=== PATIENT | female | born 1970 | race Caucasian/White ===

== ENCOUNTER 2017-06-10 19:17 | Emergency (ER) | payer MEDICAID ==
[2017-06-10] MEDS: predniSONE 20 MG TAB PO (21:50)
== END 2017-06-10 22:04 | disposition home or self-care (01) ==
LOC: FTE 19:17
DX: R21 Rash and other nonspecific skin eruption (principal)
CPT/HCPCS: 99283; J7512

== ENCOUNTER 2018-05-15 10:50 | Emergency (ER) | payer MEDICAID ==
[2018-05-15] MEDS: HYDROCODONE/APAP (5/325) TAB PO (11:39)
== END 2018-05-15 11:00 | disposition home or self-care (01) ==
LOC: FTE 10:50
DX: K08.89 Other specified disorders of teeth and supporting structures (principal)
CPT/HCPCS: 99283; Z7610